=== PATIENT | female | born 1970 | race African-American/Black ===

== ENCOUNTER 2018-09-26 23:03 | Emergency (ER) | payer SELFPAY ==
[~2018-09-26] VITALS: Ht 167.6 cm; Wt 98.9 kg
[2018-09-26 23:37] VITALS: BP 177/112
[2018-09-27] MEDS ORDERED: ACETAMINOPHEN 500 MG TAB PO ONE (03:00)
[2018-09-27] MEDS ORDERED: methylPREDNISolone SOD SUCC 125 MG/2 ML VL IM ONE (03:00)
== END 2018-09-27 03:14 | disposition home or self-care (01) ==
LOC: ER 23:14
DX: M17.0 Bilateral primary osteoarthritis of knee (principal); M62.838 Other muscle spasm; R51 Headache; M54.2 Cervicalgia; Z88.6 Allergy status to analgesic agent; W19.XXXA Unspecified fall, initial encounter; Y93.89 Activity, other specified; Y99.8 Other external cause status; Y92.89 Other specified places as the place of occurrence of the external cause
CPT/HCPCS: 70450; 72125; 73560; 96372; 99284; J2930

== ENCOUNTER 2018-10-21 15:04 | Inpatient (IN) | payer OTHER ==
[~2018-10-21] VITALS: Ht 167.6 cm; Wt 104.4 kg
[2018-10-21 16:12] LABS: Basophils # (auto) 0 uL; Basophils % (auto) 1.1 % (0.0-2.0); Eosinophils # (auto) 0.1 uL; Eosinophils % (auto) 1.3 % (0.0-7.0); Hematocrit 40.9 % (36.0-46.0); Hemoglobin 13.7 g/dL (12.2-16.2); Lymphocytes # (auto) 1.1 uL; Lymphocytes % (auto) 25.1 % (10.0-50.0); Mean Corpuscular Hemoglobin 28.9 pg (28.0-32.0); Mean Corpuscular Hgb Conc. 33.5 g/dL (32.0-36.0); Mean Corpuscular Volume 86.1 fL (80.0-100.0); Monocytes # (auto) 0.4 uL; Monocytes % (auto) 10.1 % (0.0-12.0); Neutrophils # (auto) 2.7 uL; Neutrophils % (auto) 62.4 % (37.0-80.0); Nucleated Red Blood Cells % 0.1 %; Platelet Count (auto) 217 10^3/uL (140-450); Red Blood Cells 4.74 10^6/uL (4.0-5.20); Red Cell Distribution Width 14.3 % (11.8-14.3); White Blood Cell 4.4 10^3/uL (4.4-10.8)
[2018-10-21 16:19] LABS: Albumin 3.7 g/dL (3.4-5.0); Anion Gap 9 (5-15); Blood Urea Nitrogen 8 mg/dL (7-18); Calcium 8.8 mg/dL (8.5-10.1); Carbon Dioxide 25 mmol/L (21-32); Chloride 99 mmol/L (98-107); Glucose 365 mg/dL (74-106); Magnesium 1.7 mg/dL (1.6-2.6); Potassium 3.3 mmol/L (3.5-5.1); Sodium 133 mmol/L (136-145)
[2018-10-21 16:24] LABS: Alanine Aminotransferase 23 U/L (13-56); Alkaline Phosphatase 105 U/L (45-117); Aspartate Aminotransferase 12 U/L (15-37); BUN/Creatinine Ratio 8.7; Bilirubin, Total 0.7 mg/dL (0.2-1.0); GFR African American 84 mL/min; GFR Non-African American 70 mL/min; Total Protein 8.1 g/dL (6.4-8.2)
[2018-10-21] MEDS ORDERED: HYDROcodone-ACET 10/325MG TAB PO ONE (17:30)
[2018-10-21] MEDS ORDERED: cloNIDine HCL 0.1 MG TAB ONE (17:50)
[2018-10-21] MEDS ORDERED: cloNIDine HCL 0.1 MG TAB PO ONE (18:15)
[2018-10-21] MEDS ORDERED: InsuLIN REG 1unit/0.01ml Soln (100units/ml) IV ONE (19:30)
[2018-10-21] MEDS ORDERED: POTASSIUM CHL 20 Meq TABLET PO ONE (19:30)
[2018-10-21] MEDS ORDERED: cloNIDine HCL 0.1 MG TAB PO PRN (20:30)
[2018-10-21] MEDS ORDERED: MORPHINE SULFATE 4 MG/ML SYR/VIAL IV PRN (20:30)
[2018-10-21] MEDS ORDERED: ACETAMINOPHEN 325 MG TAB PO PRN (20:30)
[2018-10-21] MEDS: FAMOTIDINE 20 MG TAB PO SCH (22:03)
[2018-10-21] MEDS: ONDANSETRON HCL 4 MG/2 ML VIAL IV PRN (22:04)
[2018-10-21 22:18] LABS: Alcohol, Urine < 3.0 mg/dL (0-5); Amphetamine Screen, Urine NEGATIVE (NEGATIVE); Barbiturate Scree,Urine NEGATIVE (NEGATIVE); Benzodiazephine Screen, Urine NEGATIVE (NEGATIVE); Cannabinoid Screen, Urine POSITIVE (NEGATIVE); Cocaine Screen, Urine NEGATIVE (NEGATIVE); Opiate Scree,Urine NEGATIVE (NEGATIVE); Phencyclidine Screen, Urine NEGATIVE (NEGATIVE)
[2018-10-21 22:25] LABS: Urine Bacteria FEW /hpf (None Seen); Urine Blood 2+ /uL (Negative); Urine Budding Yeast FEW /hpf (None Seen); Urine Specific Gravity 1.028 (1.001-1.035); Urine WBC 5 /hpf (0 - 5)
[2018-10-21] MEDS ORDERED: DEXTROSE (50%) 50ML SYRG IV PRN (22:30)
[2018-10-21] MEDS ORDERED: ATORVASTATIN 20 MG TAB PO ONE (22:30)
[2018-10-21] MEDS: ENOXAPARIN SOD 100 MG/1 ML SYRINGE SC SCH (23:12)
[2018-10-21] MEDS ORDERED: NITROGLYCERIN 0.2MG/HR TOPICAL PATCH TD ONE (23:15)
[2018-10-22] MEDS: InsuLIN REG 1unit/0.01ml Soln (100units/ml) SC SCH ×5 (00:30→21:36)
[2018-10-22] MEDS: ACCU-CHEK COMFORT CURVE STRIP VI SCH ×5 (00:30→22:00)
[2018-10-22] MEDS ORDERED: METOPROLOL TARTRATE 1MG/1ML-5ML VIAL IV ONE (01:00)
[2018-10-22] MEDS: HYDROmorphone HCL 2 MG/ML VL IV PRN ×4 (03:47→21:17)
[2018-10-22] MEDS: ONDANSETRON HCL 4 MG/2 ML VIAL IV PRN ×2 (03:47→21:14)
[2018-10-22 07:26] LABS: BUN/Creatinine Ratio 12.4; Calcium 8.6 mg/dL (8.5-10.1); Potassium 4.6 mmol/L (3.5-5.1)
[2018-10-22] MEDS ORDERED: IOHEXOL 350 MG/ML 100ML IJ ONE (09:27)
[2018-10-22] MEDS ORDERED: LIDOCAINE 2%HCL (LOCAL ANESTH.) INJ 20ML MDV ONE (09:27)
[2018-10-22] MEDS ORDERED: MIDAZOLAM HCL 1MG/1ML-2 ML VIAL ONE (09:42)
[2018-10-22] MEDS ORDERED: fentaNYL CITRATE 100 MCG/2 ML VL ONE (09:42)
[2018-10-22] MEDS ORDERED: ANGIOMAX 250 MG VIAL IV ONE (09:42)
[2018-10-22] MEDS ORDERED: SODIUM CHL 0.9% 0 ML ONE (09:42)
[2018-10-22] MEDS ORDERED: EPINEPHrine HCL 1 MG/10 ML SYRG ONE (09:43)
[2018-10-22] MEDS ORDERED: ATROPINE SULF 1 MG/10ml SYR ONE (09:43)
[2018-10-22] MEDS ORDERED: NITROGLYCERIN 5MG/ML 10ML VIAL IV ONE (09:44)
[2018-10-22] MEDS: FAMOTIDINE 20 MG TAB PO SCH ×2 (10:00→21:26)
[2018-10-22] MEDS: FUROSEMIDE 20 MG TAB PO SCH (10:00)
[2018-10-22] MEDS ORDERED: ASPirin 81 mg TAB PO SCH (10:00)
[2018-10-22] MEDS: METOPROLOL SUCCINATE XL 50 MG TAB PO SCH (11:30)
[2018-10-22] MEDS: LISINOPRIL 20 MG TAB PO SCH (11:30)
[2018-10-22] MEDS: ENOXAPARIN SOD 100 MG/1 ML SYRINGE SC SCH (11:30)
[2018-10-22] MEDS: NITROGLYCERIN 0.4 MG SL TAB SL PRN ×2 (11:50→12:21)
[2018-10-22] MEDS ORDERED: cloNIDine HCL 0.1 MG TAB PO ONE (12:30)
[2018-10-22] MEDS ORDERED: KETOROLAC TROMETH 30 MG/ML 1ML VIAL ONE (15:07)
[2018-10-22] MEDS ORDERED: KETOROLAC TROMETH 30 MG/ML 1ML VIAL IV ONE (15:15)
--- NOTE | 2018-10-22 15:40 | NUR ---
Report received from cathlab, SBAR received from Valrey PHAM. DEVIN MARIN brought to tele bed. Patient transfered to unit bed, connected to potline monitor #47 and oxygen. Catheterization site on right groin assessed for any bleeding, redness or swelling. dressing dry & intact in place. Pedal pulses on affected leg assessed for positive tissue perfusion. Patient instructed on need to notify staff immediately if any pain, burning or wetness to site, and any lower back pain. Patient educated on new cardiac medications. All questions and concerns addressed, patient verbalized understanding of all education and instruction. See notes for any further.
[2018-10-22] MEDS ORDERED: DEXTROSE (50%) 50ML SYRG IV PRN (15:45)
[2018-10-22 17:00] VITALS: BP 124/82
[2018-10-22] MEDS ORDERED: METO-158 PO (18:31)
[2018-10-22] MEDS ORDERED: CARI-277 PO (18:31)
[2018-10-22] MEDS ORDERED: HYDR25TA4 PO (18:31)
--- NOTE | 2018-10-22 19:00 | NUR ---
Opening Shift Note Assumed care of patient, awake and alert and talkative. Amb. about room. No S/S of distress/SOB or pain. Instructed on POC and to call for assist PRN, will continue to monitor for changes PRN. Repeatedly picking up pt's nurse call light and placing it beside her in the bed. Bed lowered, explaining to pt that the HOB is high and can cause her to overbalance while asleep and safety and hospital policy call for her bed to be lowered amap. Pt VU and conceded. HOB in High Vargas's.
[2018-10-22] MEDS: ATORVASTATIN 20 MG TAB PO SCH (21:23)
[2018-10-22] MEDS: NAPROXEN 500 MG TAB PO SCH (21:28)
[2018-10-22 22:00] VITALS: BP 129/78
[2018-10-23] MEDS: ONDANSETRON HCL 4 MG/2 ML VIAL IV PRN ×3 (00:46→10:08)
[2018-10-23] MEDS: HYDROmorphone HCL 2 MG/ML VL IV PRN ×4 (01:00→18:26)
[2018-10-23 05:00] VITALS: BP 111/58
[2018-10-23 06:29] LABS: Basophils # (auto) 0 uL; Basophils % (auto) 0.4 % (0.0-2.0); Eosinophils # (auto) 0.1 uL; Eosinophils % (auto) 1.2 % (0.0-7.0); Hemoglobin 11.9 g/dL (12.2-16.2); Lymphocytes # (auto) 1.2 uL; Lymphocytes % (auto) 23.3 % (10.0-50.0); Mean Corpuscular Volume 85.4 fL (80.0-100.0); Monocytes # (auto) 0.5 uL; Monocytes % (auto) 9.7 % (0.0-12.0); Neutrophils # (auto) 3.2 uL; Neutrophils % (auto) 65.4 % (37.0-80.0); Nucleated Red Blood Cells % 0.1 %; Platelet Count (auto) 206 10^3/uL (140-450)
[2018-10-23 06:39] LABS: Alanine Aminotransferase 26 U/L (13-56); Albumin 3.1 g/dL (3.4-5.0); Anion Gap 7 (5-15); Blood Urea Nitrogen 19 mg/dL (7-18); Carbon Dioxide 26 mmol/L (21-32); Chloride 99 mmol/L (98-107); Glucose 260 mg/dL (74-106); Magnesium 1.9 mg/dL (1.6-2.6); Potassium 3.8 mmol/L (3.5-5.1); Sodium 132 mmol/L (136-145)
[2018-10-23 06:42] LABS: Alkaline Phosphatase 86 U/L (45-117); Aspartate Aminotransferase 93 U/L (15-37); BUN/Creatinine Ratio 18.4; Bilirubin, Total 0.5 mg/dL (0.2-1.0); Cholesterol 149 mg/dL (< 200); GFR African American 74 mL/min; GFR Non-African American 61 mL/min; HDL Cholesterol 22 mg/dL (40-59); Total Protein 6.8 g/dL (6.4-8.2); Triglycerides 465 mg/dL (< 150)
--- NOTE | 2018-10-23 06:59 | NUR ---
Paging hospitalist for critical, though unchanged, Trop of 14.8; same as yesterday a.m. Received level from Mackenzie Sorto in lab. Received immediate call back, but phone would only vibrate and not allow answer to come through. Second call made to PBX; no answer. Will endorse to Day RN.
[2018-10-23] MEDS: ACCU-CHEK COMFORT CURVE STRIP VI SCH ×4 (07:09→22:59)
[2018-10-23] MEDS: InsuLIN REG 1unit/0.01ml Soln (100units/ml) SC SCH ×4 (07:10→22:58)
--- NOTE | 2018-10-23 07:25 | NUR ---
Spoke with Hany Trejo RN [employer], hospitalist, in person; order received to discontinue all troponins. Pt sleeping in her room; no s/sx of pain at this time. Resumed sleep easily after POC BG done. Care endorsed to day RN.
--- NOTE | 2018-10-23 07:30 | NUR ---
OPENING NOTE OBSERVED PT RESTING IN BED, ON RIGHT SIDE. EYES ARE CLOSED, EVEN RISE AND FALL OF CHEST. FALL PRECAUTIONS IN PLACE. WILL CONTINUE TO MONITOR Q1H AND PRN. CONTINUE PT CARE.
[2018-10-23] MEDS: glipiZIDE 5 MG TAB PO SCH (07:55)
[2018-10-23 09:00] VITALS: BP 112/74
[2018-10-23] MEDS: NAPROXEN 500 MG TAB PO SCH ×2 (10:00→22:00)
[2018-10-23] MEDS: METOPROLOL SUCCINATE XL 50 MG TAB PO SCH (10:06)
[2018-10-23] MEDS: FAMOTIDINE 20 MG TAB PO SCH ×2 (10:09→22:23)
[2018-10-23] MEDS: ASPirin 81 mg TAB PO SCH (10:09)
[2018-10-23] MEDS: CLOPIDOGREL BISULFATE 75 MG TAB PO SCH (10:10)
[2018-10-23] MEDS: LISINOPRIL 20 MG TAB PO SCH (10:10)
[2018-10-23] MEDS: ENOXAPARIN SOD 40 MG/0.4 ML SYRINGE SC SCH (10:10)
[2018-10-23] MEDS: FUROSEMIDE 20 MG TAB PO SCH (10:11)
[2018-10-23] MEDS ORDERED: cefTRIAXone 1GM/50ML D5W 50 ML IV ONE (11:30)
--- NOTE | 2018-10-23 11:30 | NUR ---
URINALYSIS SPOKE TO PT REGARDING PENDING UA. PT VERBALIZED UNDERSTANDING. LABELED SPECIMEN CUP LEFT AT BEDSIDE.
--- NOTE | 2018-10-23 11:43 | NUR ---
PAIN MANAGEMENT SPOKE TO DR. FREDERICK REGARDING PATIENTS CONTINUED C/O CHEST DISCOMFORT DESPITE RECEIVING IV DILAUDID. PT STATING, 'IT'S JUST NOT STAYING IN MY SYSTEM LONG ENOUGH'. ORDERS RECEIVED AND READ BACK.
[2018-10-23] MEDS: HYDROcodone-ACET 5/325MG TAB PO PRN ×2 (12:18→22:55)
[2018-10-23] MEDS: DOCUSATE SOD 100 MG CAP PO PRN ×2 (12:19→22:27)
[2018-10-23] MEDS: Glucerna Carbsteady SHAKE Vanilla 8oz PO SCH ×2 (12:20→18:25)
[2018-10-23 13:00] VITALS: BP 105/70
--- NOTE | 2018-10-23 15:03 | NUR ---
IV LEAKING PATIENTS LH IV IS LEAKING. IV IS POSITIONAL, ABLE TO FLUSH WITHOUT RESISTANCE, BUT IF WRIST BENDS, IV LEAKS. INFORMED PT THAT NEW IV NEEDS TO BE STARTED FOR SAFETY AND MEDICATION EFFECTIVENESS. PT REFUSING AT THIS TIME. WILL CONTINUE TO REINFORCE NEED FOR NEW IV ACCESS.
--- NOTE | 2018-10-23 16:15 | NUR ---
IV LEAKING PT CONTINUES TO C/O GENERALIZED / PAIN. REQUESTING PRN DILAUDID. INFORMED PT THAT IV IS STILL LEAKING AND THAT NEW IV NEEDS TO BE STARTED. PT STATING SHE DOES NOT WANT NEW IV STARTED. INFORMED PT THAT IT IS LIKELY SHE WILL NOT RECEIVE ENTIRE DOSE OF MEDICATION IF SITE IS STILL LEAKING. PT NOW AGREEABLE TO NEW IV START.
[2018-10-23 17:00] VITALS: BP 140/79
--- NOTE | 2018-10-23 18:27 | NUR ---
IV insertion IV access obtained, via clean sterile technique by inserting 22 gauge catheter at [facility] after 3 attempt(s) by ANKIT Wyman. IV secured properly. No trauma to site. Patient tolerated well.
--- NOTE | 2018-10-23 19:00 | NUR ---
Opening Shift Note Assumed care of patient, sleeping quietly. HOB in Vargas's position. No S/S of distress/SOB or pain. Will continue to monitor for changes PRN. Bed low. Call light beside pt in bed.
[2018-10-23 22:00] VITALS: BP 140/89
--- NOTE | 2018-10-23 22:00 | NUR ---
This RN entered pt's room to find her digging in IN-N-OUT bag with cup in her hand, later she admitted it is a milk shake. "It was a gift, I had to drink it." Her children brought it in earlier in the day along with a cheeseburger. She ate this in addition to her other meals though she claims she "didn't eat it all, because it had no taste, no salt." This RN reminded her she is on a consistent carb diet not cardiac. RN spent 30 - 40 minutes with her passing p.m. meds, testing BG and instructing her re need to adhere to diet which is new for her and the dangers of kidney damage, dialysis, etc if she does not take her own health seriously. This RN also informed pt that if she adheres to changes MD wants to make, she will have more energy and better health to enjoy life as she states she desires to do. Pt c/o day RN and of MDs not controlling her pain and "not finding out what's wrong with me." This RN reminded pt that she wants answers but is not willing to participate in the answers. Pt repeatedly says, "Yes, I know," with no eye contact and no emotion.
[2018-10-23] MEDS: ATORVASTATIN 20 MG TAB PO SCH (22:23)
[2018-10-24 05:00] VITALS: BP 124/71
[2018-10-24 05:44] LABS: Basophils # (auto) 0 uL; Basophils % (auto) 0.9 % (0.0-2.0); Eosinophils # (auto) 0 uL; Hemoglobin 11.6 g/dL (12.2-16.2); Lymphocytes # (auto) 1.2 uL; Lymphocytes % (auto) 24.8 % (10.0-50.0); Mean Corpuscular Hemoglobin 29.2 pg (28.0-32.0); Mean Corpuscular Volume 85.9 fL (80.0-100.0); Monocytes # (auto) 0.6 uL; Neutrophils # (auto) 2.9 uL; Neutrophils % (auto) 61.3 % (37.0-80.0); Nucleated Red Blood Cells % 0.1 %; Platelet Count (auto) 199 10^3/uL (140-450); Red Blood Cells 3.95 10^6/uL (4.0-5.20); Red Cell Distribution Width 14.5 % (11.8-14.3); White Blood Cell 4.7 10^3/uL (4.4-10.8)
[2018-10-24] MEDS: HYDROcodone-ACET 5/325MG TAB PO PRN ×2 (06:00→16:46)
[2018-10-24] MEDS: ACCU-CHEK COMFORT CURVE STRIP VI SCH ×2 (06:12→11:30)
[2018-10-24 06:29] LABS: Potassium 3.9 mmol/L (3.5-5.1)
[2018-10-24] MEDS: glipiZIDE 5 MG TAB PO SCH (06:51)
[2018-10-24] MEDS: InsuLIN REG 1unit/0.01ml Soln (100units/ml) SC SCH ×2 (06:55→11:30)
[2018-10-24 06:56] LABS: Calcium 8.2 mg/dL (8.5-10.1)
--- NOTE | 2018-10-24 07:08 | NUR ---
Pt states "at the end of the day they [[place] and Dilaudid] don't do anything" upon this RN's entry. She refused to receive the insulin and the glucotrol until "later". Both were given at approx. 0650. Pt less cooperative in rousing to action to take meds. Will endorse to day RN.
--- NOTE | 2018-10-24 07:40 | NUR ---
opening patient asleep, in bed, bed in lowest position, call light within reach. No distress noted at this time will f/u with morning assessment
[2018-10-24] MEDS ORDERED: metFORMIN HYDROCHLORIDE 500 MG TAB PO SCH (08:00)
[2018-10-24] MEDS: Glucerna Carbsteady SHAKE Vanilla 8oz PO SCH ×2 (08:00→12:00)
[2018-10-24 09:00] VITALS: BP 112/71
[2018-10-24] MEDS ORDERED: cefTRIAXone 1GM/50ML D5W 50 ML IV SCH (09:00)
[2018-10-24] MEDS: ASPirin 81 mg TAB PO SCH (09:32)
[2018-10-24] MEDS: FUROSEMIDE 20 MG TAB PO SCH (09:32)
[2018-10-24] MEDS: LISINOPRIL 20 MG TAB PO SCH (09:33)
[2018-10-24] MEDS: METOPROLOL SUCCINATE XL 50 MG TAB PO SCH (09:33)
[2018-10-24] MEDS: CLOPIDOGREL BISULFATE 75 MG TAB PO SCH (09:34)
[2018-10-24] MEDS: FAMOTIDINE 20 MG TAB PO SCH (09:34)
[2018-10-24] MEDS: ENOXAPARIN SOD 40 MG/0.4 ML SYRINGE SC SCH (09:35)
[2018-10-24] MEDS: HYDROmorphone HCL 2 MG/ML VL IV PRN (09:35)
[2018-10-24] MEDS: NAPROXEN 500 MG TAB PO SCH (09:35)
[2018-10-24] MEDS ORDERED: ATOR20TA50 PO (11:46)
[2018-10-24] MEDS ORDERED: GLIP-115 PO (11:46)
[2018-10-24] MEDS ORDERED: MET5XLT PO (11:46)
[2018-10-24] MEDS ORDERED: LISI-646 PO (11:46)
[2018-10-24] MEDS ORDERED: METF-372 PO (11:46)
[2018-10-24] MEDS ORDERED: ASPI81CH43 PO (11:46)
[2018-10-24] MEDS ORDERED: FUR20T PO (11:56)
[2018-10-24] MEDS ORDERED: POTA1TAB61 PO (11:56)
--- NOTE | 2018-10-24 12:00 | NUR ---
MD HERNANDEZ DISCUSSES DISCHARGE PLANNING, WROTE PRESCRIPTIONS, NOTED TO EDUCATE PATIENT ON DIABETIC TEACHING WILL FOLLOW ORDERS GIVEN
[2018-10-24 13:00] VITALS: BP 112/71
[2018-10-24 17:00] VITALS: BP 106/62
--- NOTE | 2018-10-24 17:00 | NUR ---
Discharge instructions given as ordered. Encourage to follow up with PMD as instructed. All questions and concerns addressed. Patient verbalized understanding. IV removed with catheter intact, pressure dressing applied. Telemetry unit returned to ICU. Patient taken to vehicle via wheelchair with all personal belongings, accompanied by staff and family member. No distress noted at time of departure.
--- NOTE | 2018-10-25 15:25 | NUR ---
assessment Per consult homeless. Patient discharge prior to being assessed. Addendum: 10/26/18 at 1726 by Catia BELLO Amended: Links added.
== END 2018-10-24 17:00 | disposition home or self-care (01) | DRG 192 ==
LOC: ER 15:04 → TELE 20:26 → TELE-CENTR 10-22 15:45
PROVIDERS: ADMIT Nurse Practitioner; ATTEND Internal Medicine
PROC: 4A023N7 Measurement of Cardiac Sampling and Pressure, Left Heart, Percutaneous Approach (ICD-10-PCS; principal; 2018-10-22)
PROC: B2111ZZ Fluoroscopy of Multiple Coronary Arteries using Low Osmolar Contrast (ICD-10-PCS; 2018-10-22)
PROC: B2151ZZ Fluoroscopy of Left Heart using Low Osmolar Contrast (ICD-10-PCS; 2018-10-22)
DX: I11.0 Hypertensive heart disease with heart failure (principal); I21.A1 Myocardial infarction type 2; N17.0 Acute kidney failure with tubular necrosis; I50.43 Acute on chronic combined systolic (congestive) and diastolic (congestive) heart failure; E44.0 Moderate protein-calorie malnutrition; I25.5 Ischemic cardiomyopathy; E11.65 Type 2 diabetes mellitus with hyperglycemia; F19.10 Other psychoactive substance abuse, uncomplicated; E78.5 Hyperlipidemia, unspecified; E66.01 Morbid (severe) obesity due to excess calories; E87.1 Hypo-osmolality and hyponatremia; E11.21 Type 2 diabetes mellitus with diabetic nephropathy; E87.6 Hypokalemia; F17.200 Nicotine dependence, unspecified, uncomplicated; I25.10 Atherosclerotic heart disease of native coronary artery without angina pectoris; Z59.0 Homelessness; Z83.3 Family history of diabetes mellitus; Z91.19 Patient's noncompliance with other medical treatment and regimen; I25.2 Old myocardial infarction; Z68.37 Body mass index [BMI] 37.0-37.9, adult
CPT/HCPCS: 36415; 71046; 80048; 80053; 80061; 80307; 81001; 82962; 83036; 83735; 83880; 84443; 84484; 85025; 93005; 93306; 96374; 96375; 99152; 99291; A6257; G0378; J0696; J1815; J1885; J2250; J2405; J3490

== ENCOUNTER → 2018-10-21 | Emergency (ER) | payer MEDICAID, OTHER ==
[~2018-10-21] MED LIST: ASPI81CH43 PO; ATOR20TA50 PO; CARI-277 PO; FUR20T PO; GLIP-115 PO; HYDR25TA4 PO; LISI-646 PO; MET5XLT PO; METF-372 PO; METO-158 PO; POTA1TAB61 PO
== END | disposition left against medical advice (07) ==
LOC: ER 15:14 → TELE 20:26 → UNDOADMIN 20:26
DX: R07.9 Chest pain, unspecified (principal); Z53.21 Procedure and treatment not carried out due to patient leaving prior to being seen by health care provider

== ENCOUNTER 2018-11-24 21:19 | Emergency (ER) | payer MEDICAID, OTHER ==
[~2018-11-24] VITALS: Ht 167.6 cm; Wt 99.8 kg
[~2018-11-24 21:19] MED LIST changes: -HYDR25TA4 PO; -METO-158 PO
[2018-11-24 23:39] LABS: Basophils # (auto) 0.1 uL; Basophils % (auto) 1.3 % (0.0-2.0); Eosinophils # (auto) 0.2 uL; Eosinophils % (auto) 3.6 % (0.0-7.0); Hematocrit 36.9 % (36.0-46.0); Hemoglobin 12.3 g/dL (12.2-16.2); Lymphocytes # (auto) 1.2 uL; Mean Corpuscular Hemoglobin 28.7 pg (28.0-32.0); Mean Corpuscular Hgb Conc. 33.3 g/dL (32.0-36.0); Mean Corpuscular Volume 86.1 fL (80.0-100.0); Monocytes # (auto) 0.4 uL; Neutrophils # (auto) 2.9 uL; Neutrophils % (auto) 61.1 % (37.0-80.0); Nucleated Red Blood Cells % 0.1 %; Platelet Count (auto) 203 10^3/uL (140-450); Red Blood Cells 4.29 10^6/uL (4.0-5.20); Red Cell Distribution Width 14.9 % (11.8-14.3); White Blood Cell 4.7 10^3/uL (4.4-10.8)
[2018-11-24 23:58] LABS: Alanine Aminotransferase 24 U/L (13-56); Albumin 3.4 g/dL (3.4-5.0); Anion Gap 7 (5-15); Aspartate Aminotransferase 16 U/L (15-37); BUN/Creatinine Ratio 8.9; Blood Urea Nitrogen 8 mg/dL (7-18); Calcium 8.5 mg/dL (8.5-10.1); Carbon Dioxide 26 mmol/L (21-32); Chloride 107 mmol/L (98-107); GFR African American 86 mL/min; GFR Non-African American 71 mL/min; Glucose 141 mg/dL (74-106); Potassium 3.4 mmol/L (3.5-5.1); Sodium 140 mmol/L (136-145)
[2018-11-25 00:03] LABS: Alkaline Phosphatase 94 U/L (45-117); Bilirubin, Total 0.4 mg/dL (0.2-1.0); Total Protein 7.4 g/dL (6.4-8.2)
[2018-11-25 02:05] VITALS: BP 144/96
[2018-11-25 03:09] LABS: INR 0.93 (0.9-1.15); Partial Thromboplastin Time 25.7 sec (23.78-33.04)
== END 2018-11-25 03:17 | disposition home or self-care (01) ==
LOC: ER 21:26
DX: E11.65 Type 2 diabetes mellitus with hyperglycemia (principal); M79.7 Fibromyalgia; R52 Pain, unspecified; E78.5 Hyperlipidemia, unspecified; I11.0 Hypertensive heart disease with heart failure; I50.9 Heart failure, unspecified; Z79.82 Long term (current) use of aspirin; Z79.84 Long term (current) use of oral hypoglycemic drugs; Z88.6 Allergy status to analgesic agent
CPT/HCPCS: 36415; 80053; 82550; 83880; 84484; 85025; 85610; 85730; 93005; 94761